=== PATIENT | female | born 1990 | race Caucasian/White ===

== ENCOUNTER 2019-07-25 14:19 | Emergency (ER) | payer OTHER ==
[2019-07-25 14:27] VITALS: BP 103/61; PULSE 71; TEMP 97.4; BMI 22.2
[2019-07-25] MEDS ORDERED: SODIUM CHLORIDE 1,000 ML IV STA (14:52)
[2019-07-25] MEDS ORDERED: METOCLOPRAMIDE HCL INJECTION 10 MG/2 ML VIAL IVPUSH ONE (14:52)
[2019-07-25] MEDS ORDERED: KETOROLAC TROMETHAMINE 30 MG/1 ML VIAL IVPUSH ONE (14:52)
--- NOTE | 2019-07-25 14:52 | PDOC ---
History of Present Illness - General Chief Complaint: Headache Stated Complaint: HEADACHE/BODY ACHE Time Seen by Provider: 07/25/19 14:43 History Source: Patient Exam Limitations: No Limitations - History of Present Illness Initial Comments: 07/25/19 14:48 HISTORY OF PRESENT ILLNESS: 29-year-old otherwise healthy woman presents emergency department for evaluation of right-sided headache since awaking this morning. Patient reports gradual escalation in the headache while she was at work today which is been above the eye radiating to the temporal region. She rates her pain 8/10 and describes as a throbbing pain. She reports having intermittent nausea. She denies any vomiting, fevers, blurry vision, dizziness , chest pain, shortness of breath. No recent travel or sick contacts. PAST MEDICAL HISTORY: Denies past medical history SURGICAL HISTORY: Denies ALLERGIES: No known drug allergies REVIEW OF SYSTEMS General/Constitutional: Denies fever or chills. Denies weakness, weight change. HEENT: Denies change in vision. Denies ear pain or discharge. Denies sore throat. Cardiovascular: Denies chest pain or shortness of breath. Respiratory: Denies cough, wheezing, or hemoptysis. Gastrointestinal: Denies nausea, vomiting, diarrhea or constipation. Denies rectal bleeding. Genitourinary: Denies dysuria, frequency, or change in urination. Musculoskeletal: Denies joint or muscle swelling or pain. Denies neck or back pain. Skin and breasts: Denies rash or easy bruising. Neurologic: See HPI Psychiatric: Denies depression or anxiety. Endocrine: Denies increased thirst. Denies abnormal weight change. Hematologic/Lymphatic: Denies anemia, easy bleeding, or history of blood clots. Allergic/Immunologic: Denies hives or skin allergy. Denies latex allergy. PHYSICAL EXAM General Appearance: Well-appearing, appropriately dressed. No apparent distress , no intoxication. HEENT: EOMI, PERRLA, normal ENT inspection, normal voice, TMs normal, pharynx normal. No conjunctival pallor. No photophobia, scleral icterus. Neck: Supple. Trachea midline. No tenderness, rigidity, carotid bruit, stridor , lymphadenopathy, or thyromegaly. Respiratory/Chest: Lungs CTAB. No shortness of breath, chest tenderness, respiratory distress, accessory muscle use. No crackles, rales, rhonchi, stridor , wheezing, dullness Neurologic: grocery caddy II-XII intact. Fully oriented, alert. Appropriate mood/affect. Motor strength 5/5. No appreciable EOM palsy, facial droop or sensory deficit. Gait steady. Normal [id number] testing. Able to perform rapid alternating movements without difficulty. Negative Kernig's and Brudzinski signs. Past History - Past Medical History Allergies/Adverse Reactions: Allergies Allergy/AdvReac Type Severity Reaction Status Date / Time No Known Allergies Allergy Verified 07/25/19 14:22 Home Medications: Ambulatory Orders Acetaminophen [Tylenol] 325 mg PO PRN 07/25/19 Asthma: No Cancer: No Cardiac Disorders: No Diabetes: No HTN: No Kidney Stones: Yes Seizures: No Thyroid Disease: No - Reproductive History (#): 3 Para: 2 Therapeutic (s) & number: No Spontaneous : 0 - Immunization History Immunization Up to Date: Yes - Psycho Social/Smoking Cessation Hx Smoking Status: No Smoking History: Never smoked Have you smoked in the past 12 months: No Number of Cigarettes Smoked Daily: 0 Information on smoking cessation initiated: No Hx Alcohol Use: No Drug/Substance Use Hx: No Substance Use Type: None Hx Substance Use Treatment: No *Physical Exam - Vital Signs Last Vital Signs Temp Pulse Resp BP Pulse Ox 97.4 F L 71 16 103/61 98 07/25/19 14:22 07/25/19 14:22 07/25/19 14:22 07/25/19 14:22 07/25/19 14:22 Medical Decision Making - Medical Decision Making 07/25/19 14:50 A/P: 29-year-old woman with acute gradual onset of right frontotemporal headache since awakening this morning As patient is afebrile has no nuchal rigidity has negative Kernig's and Brudzinski signs believe infectious etiology is unlikely. Symptoms are consistent with a migraine headache. Questionable hormone related as patient is due for her period eminently. Patient reports she has not been sexually active so less likely related. Normal saline 1 L IV bolus Toradol 30 mg IV push Reglan 10 mg IV push Benadryl 12.5 mg IV push Reassess 07/25/19 16:08 Patient reports improvement in headache after receiving migraine cocktail. Patient feels well enough to go home. Discharge home with neurology follow-up for potential evaluation of migraines and prescription for rescue medications. Discharge - Discharge Information Problems reviewed: Yes Clinical Impression/Diagnosis: Migraine Qualifiers: Migraine type: unspecified Status migrainosus presence: without status migrainosus Intractability: not intractable Qualified Code(s): G43.909 - Migraine, unspecified, not intractable, without status migrainosus Condition: Fair Disposition: HOME - Admission No - Follow up/Referral Referrals: Emile Martínez MD [Staff Physician] - - Patient Discharge Instructions Additional Instructions: Take Tylenol or Motrin as needed for headaches. Keep a diary of all food to eat and activities performed prior to headaches starting. Make an appointment with her primary doctor for reevaluation within the next week. Return to emergency department for worsening headache, blurry vision, dizziness , nausea, vomiting or any other concerns. Thank you very much for for choosing us to provide emergent health care needs. - Post Discharge Activity Work/Back to School Note: Back to Work
[2019-07-25] MEDS ORDERED: KETOROLAC TROMETHAMINE 30 MG/1 ML VIAL ONE (15:01)
[2019-07-25] MEDS ORDERED: METOCLOPRAMIDE HCL INJECTION 10 MG/2 ML VIAL ONE (15:01)
== END 2019-07-25 16:19 | disposition home or self-care (01) ==
LOC: JERFT 14:19 → JER 14:19 → JERFT 16:19
PROC: 3E0333Z Introduction of Anti-inflammatory into Peripheral Vein, Percutaneous Approach (ICD-10-PCS; principal; 2019-07-25)
PROC: 3E033GC Introduction of Other Therapeutic Substance into Peripheral Vein, Percutaneous Approach (ICD-10-PCS; 2019-07-25)
PROC: 3E033GC Introduction of Other Therapeutic Substance into Peripheral Vein, Percutaneous Approach (ICD-10-PCS; 2019-07-25)
DX: G43.909 Migraine, unspecified, not intractable, without status migrainosus (principal)
CPT/HCPCS: 99284-25; J7030

== ENCOUNTER 2019-07-27 09:44 | Emergency (ER) | payer OTHER ==
[2019-07-27 10:08] VITALS: BP 125/74; PULSE 119; TEMP 102; BMI 22.2
[2019-07-27] MEDS ORDERED: ACETAMINOPHEN 325 MG TABLET (FP) PO ONE (10:09)
[2019-07-27] MEDS ORDERED: KETOROLAC TROMETHAMINE 30 MG/1 ML VIAL IM ONE (11:09)
[2019-07-27] MEDS ORDERED: KETOROLAC TROMETHAMINE 30 MG/1 ML VIAL ONE (11:12)
--- NOTE | 2019-07-27 11:12 | PDOC ---
History of Present Illness - General Chief Complaint: Cold Symptoms Stated Complaint: BODYACHES/ FEVER/CHILLS Time Seen by Provider: 07/27/19 10:45 History Source: Patient Exam Limitations: Clinical Condition - History of Present Illness Initial Comments: 07/27/19 11:08 Patient with no significant past medical history present with complaint of 2- day history of headache, body aches, nasal congestion, fever, chills and weakness. Patient was seen here in this ED 2 days ago for headache but did not have fever then. Patient report fever started today. Reported nausea but denies vomiting. Denies diarrhea or constipation. Denies shortness of breath, chest pain, palpitations. Denies any other symptoms Is this a multiple visit Asthma Patient?: No Timing/Duration: other (2 days) Past History - Past Medical History Allergies/Adverse Reactions: Allergies Allergy/AdvReac Type Severity Reaction Status Date / Time No Known Allergies Allergy Verified 07/25/19 14:22 Home Medications: Ambulatory Orders Acetaminophen [Tylenol] 325 mg PO PRN 07/25/19 Amox-Tr/K Cl [Augmentin - 875Mg Tablet] 1 tab PO BID #14 tablet 07/27/19 Methylprednisolone [Medrol Dose Harley] 4 mg PO ASDIR #21 tablet 07/27/19 Asthma: No Cancer: No Cardiac Disorders: No COPD: No Diabetes: No HTN: No Kidney Stones: Yes Seizures: No Thyroid Disease: No - Reproductive History (#): 3 Para: 2 Therapeutic (s) & number: No Spontaneous : 0 - Immunization History Immunization Up to Date: Yes - Psycho Social/Smoking Cessation Hx Smoking Status: No Smoking History: Never smoked Have you smoked in the past 12 months: No Number of Cigarettes Smoked Daily: 0 Information on smoking cessation initiated: No Hx Alcohol Use: No Drug/Substance Use Hx: No Substance Use Type: None Hx Substance Use Treatment: No Review of Systems - Review of Systems Able to Perform ROS?: Yes Is the patient limited Divehi proficient: No Constitutional: Yes: Chills, Fever, Malaise HEENTM: Yes: Symptoms Reported, See HPI, Nose Congestion, Throat Pain. No: Eye Pain, Blurred Vision, Tearing, Recent change in vision, Double Vision, Cataracts , Ear Pain, Ocular Prothesis, Ear Discharge, Nose Pain, Tinnitus, Nose Bleeding , Hearing Loss, Throat Swelling, Mouth Pain, Dental Problems, Difficulty Swallowing, Mouth Swelling, Other Respiratory: Yes: Symptoms reported, See HPI, Cough. No: Orthopnea, Shortness of Breath, SOB with Exertion, SOB at Rest, Stridor, Wheezing, Productive cough, Hemoptysis, Other Cardiac (ROS): No: Symptoms Reported, See HPI, Chest Pain, Edema, Irregular Heart Rate, Lightheadedness, Palpitations, Syncope, Chest Tightness, Other ABD/GI: Yes: Symptoms Reported, See HPI, Nausea. No: Abd. Pain w/ defecation, Constipated, Diarrhea, Difficulty Swallowing, Poor Appetite, Rectal Bleeding, Vomiting, Indigestion, Abdominal cramping : No: Symptoms Reported Musculoskeletal: No: Symptoms Reported Integumentary: No: Symptoms Reported Neurological: Yes: Symptoms reported, See HPI, Headache. No: Weakness, Dizziness All Other Systems: Reviewed and Negative *Physical Exam - Vital Signs Last Vital Signs Temp Pulse Resp BP Pulse Ox 102.0 F H 119 H 18 125/74 100 07/27/19 10:06 07/27/19 10:06 07/27/19 10:06 07/27/19 10:06 07/27/19 10:06 - Physical Exam 07/27/19 11:10 GENERAL: Well developed, well nourished. Awake and alert. No acute distress. HEENT: Normocephalic, atraumatic. PERRLA, EOMI. No conjunctival pallor. Sclera are non-icteric. Moist mucous membranes. Oropharynx is clear. NECK: Supple. Full ROM. CARDIOVASCULAR: Regular rate and rhythm. No murmurs, rubs, or gallops. Distal pulses are 2+ and symmetric. PULMONARY: No evidence of respiratory distress. Lungs clear to auscultation bilaterally. No wheezing, rales or rhonchi. ABDOMINAL: Soft. Non-tender. Non-distended. No rebound or guarding. No organomegaly. Normoactive bowel sounds. MUSCULOSKELETAL Normal range of motion at all joints. SKIN: Warm and dry. Normal capillary refill. No rashes. No cyanosis. NEUROLOGICAL: Alert, awake, appropriate. Gait is normal without ataxia. PSYCHIATRIC: Cooperative. Good eye contact. Appropriate mood General Appearance: Yes: Nourished, Appropriately Dressed. No: Apparent Distress ED Treatment Course - Medications Given in the ED: ED Medications Discontinued Medications Generic Name Dose Route Start Last Admin Trade Name Glenn PRN Reason Stop Dose Admin Acetaminophen 650 mg 07/27/19 10:09 07/27/19 10:09 Tylenol - PO 07/27/19 10:10 650 mg NOW ONE Administration Medical Decision Making - Medical Decision Making 07/27/19 11:11 Patient with no significant past medical history present with complaint of 2- day history of headache, body aches, sore throat, nasal congestion, fever, chills and weakness. Patient was seen here in this ED 2 days ago for headache but did not have fever then. Patient report fever started today. Reported nausea but denies vomiting. Denies diarrhea or constipation. Denies shortness of breath, chest pain, palpitations. Denies any other symptoms Exam significant for fever of 102 F with patient complaining of headaches. Lungs clear to auscultation bilateral. No abdominal tenderness on exam. This patient symptoms likely influenza versus strep. Tylenol 650 mg given from triage for fever. Given complaint of headache will also give Toradol 30 mg IM. Rapid strep and rapid flu ordered to rule out strep and flu 07/27/19 11:54 Rapid strep positive. Rapid flu negative. Patient stable for patient management on Augmentin twice daily for a week for strep pharyngitis with advised to alternate between Tylenol Motrin as needed for fever and increase fluid intake with PCP follow-up Discharge - Discharge Information Problems reviewed: Yes Clinical Impression/Diagnosis: Strep pharyngitis Fever Qualifiers: Fever type: unspecified Qualified Code(s): R50.9 - Fever, unspecified Condition: Stable Disposition: HOME - Admission No - Additional Discharge Information Prescriptions: Amox-Tr/K Cl [Augmentin - 875Mg Tablet] 1 tab PO BID #14 tablet Methylprednisolone [Medrol Dose Harley] 4 mg PO ASDIR #21 tablet - Follow up/Referral - Patient Discharge Instructions Patient Printed Discharge Instructions: Strep Throat Additional Instructions: Strep test was positive which is likely the cause of your symptoms. Take prescribed antibiotics and medication as prescribed for strep and body aches. Increase fluid intake. Continue with Tylenol and alternate with Motrin as needed for fever. Follow-up with your primary care - Post Discharge Activity Work/Back to School Note: Back to Work
== END 2019-07-27 11:51 | disposition home or self-care (01) ==
LOC: JERFT 09:44
PROC: 3E0233Z Introduction of Anti-inflammatory into Muscle, Percutaneous Approach (ICD-10-PCS; principal; 2019-07-27)
DX: J02.0 Streptococcal pharyngitis (principal); B95.0 Streptococcus, group A, as the cause of diseases classified elsewhere
CPT/HCPCS: 87804; 87880; 99284-25